=== PATIENT | male | born 1980 | race Two or more races ===

== ENCOUNTER 2017-08-08 20:58 | Emergency (ER) | payer OTHER ==
[~2017-08-08] VITALS: Ht 182.9 cm; Wt 86.2 kg
[2017-08-08] MEDS ORDERED: PRED20TA PO (22:00)
[2017-08-08] MEDS ORDERED: predniSONE 20 MG TABLET PO ONE (22:00)
--- NOTE | 2017-08-08 22:00 | PHYS DOC ---
Adult General Chief Complaint Chief Complaint: ALLERGIC REACTION HPI HPI Patient is a [age] year old [sex] who presents with [] Review of Systems Review of Systems Constitutional: Denies fever or chills [] Eyes: Denies change in visual acuity, redness, or eye pain [] HENT: Denies nasal congestion or sore throat [] Respiratory: Denies cough or shortness of breath [] Cardiovascular: No additional information not addressed in HPI [] GI: Denies abdominal pain, nausea, vomiting, bloody stools or diarrhea [] : Denies dysuria or hematuria [] Musculoskeletal: Denies back pain or joint pain [] Integument: Denies rash or skin lesions [] Neurologic: Denies headache, focal weakness or sensory changes [] Endocrine: Denies polyuria or polydipsia [] All other systems were reviewed and found to be within normal limits, except as documented in this note. Current Medications Current Medications Current Medications Medications (Trade) Dose Ordered Sig/Deidre Start Time Stop Time Status Last Admin Dose Admin Prednisone (Prednisone) 60 mg 1X ONCE 08/08/17 22:00 08/08/17 22:01 08/08/17 21:39 60 MG Allergies Allergies Allergies Coded Allergies Type Severity Reaction Last Updated Verified Penicillins Allergy Intermediate 08/08/17 Yes Physical Exam Physical Exam Constitutional: Well developed, well nourished, no acute distress, non-toxic appearance. [] HENT: Normocephalic, atraumatic, bilateral external ears normal, oropharynx moist, no oral exudates, nose normal. [] Eyes: PERRLA, EOMI, conjunctiva normal, no discharge. [] Neck: Normal range of motion, no tenderness, supple, no stridor. [] Cardiovascular:Heart rate regular rhythm, no murmur [] Lungs & Thorax: Bilateral breath sounds clear to auscultation [] Abdomen: Bowel sounds normal, soft, no tenderness, no masses, no pulsatile masses. [] Skin: Warm, dry, no erythema, no rash. [] Back: No tenderness, no CVA tenderness. [] Extremities: No tenderness, no cyanosis, no clubbing, ROM intact, no edema. [] Neurologic: Alert and oriented X 3, normal motor function, normal sensory function, no focal deficits noted. [] Psychologic: Affect normal, judgement normal, mood normal. [] EKG EKG [] Radiology/Procedures Radiology/Procedures [] Course & Med Decision Making Course & Med Decision Making Pertinent Labs and Imaging studies reviewed. (See chart for details) [] Naman Disclaimer Dragrayshawn Disclaimer This electronic medical record was generated, in whole or in part, using a voice recognition dictation system. Departure Departure: Impression: Primary Impression: Allergic reaction Disposition: 01 HOME, SELF-CARE Condition: GOOD Additional Instructions: It does appear that you've experienced a mild allergic reaction to some element of your meal this evening. Your symptoms have resolved after taking Benadryl. Use Benadryl every 4-6 hours as needed for any symptoms but even if you have no symptoms, finish prednisone as prescribed once a day for 4 more days starting tomorrow. You have been given a prescription for an EpiPen which is appropriate to use if you have an allergic reaction with symptoms of evolving airway compromise. If it becomes necessary at some point to use the EpiPen be sure to be evaluated medically as well. After symptoms resolve follow-up with your doctor for allergy testing and return to the emergency Department immediately for new severe worsening symptoms Scripts Epinephrine (EPIPEN 2-SHIRA) 0.3 Mg/0.3 Ml Auto.injct 0.3 MG IJ 1X Y for ANAPHYLAXIS, #1 SYR Prov: DUNG ESTRELLA MD 08/08/17 Prednisone (PREDNISONE) 20 Mg Tablet 60 MG PO DAILY for 4 Days, #12 TAB Prov: DUNG ESTRELLA MD 08/08/17 DUNG ESTRELLA MD Aug 08, 2017 22:00
[2017-08-08 22:05] VITALS: BP 121/64
[2017-08-08] MEDS ORDERED: EPIN0.3A4 IJ (22:15)
== END 2017-08-08 22:05 | disposition home or self-care (01) ==
LOC: ER 20:58
DX: T78.40XA Allergy, unspecified, initial encounter (principal); X58.XXXA Exposure to other specified factors, initial encounter
CPT/HCPCS: 99284; J7512